=== PATIENT | male | born 1980 | race Caucasian/White ===

== ENCOUNTER 2016-08-17 07:24 | Emergency (ER) | payer MEDICAID ==
[~2016-08-17] VITALS: Ht 177.8 cm; Wt 72.6 kg
[2016-08-17 07:29] VITALS: BP 115/83; PULSE 85; RESP 16; TEMP 98.2; O2SAT 99
--- NOTE | 2016-08-17 08:00 | NUR ---
ambulated to bed 3
--- NOTE | 2016-08-17 08:00 | NUR ---
Patient presents to the emergency department with a small bump underneath buttom eyelid x 6 months that has not gone away. denies redness, pain, itching, or drainage, just states discomfort becuase he feels like "something is there". patient states it was drained 6 months ago and it has not gotten better since. Patient states he has not gone to see his primary or eye
--- NOTE | 2016-08-17 08:05 | NUR ---
CATA Grace at bedside examining patient.
--- NOTE | 2016-08-17 08:30 | NUR ---
Patient given written and verbal discharge instructions and verbalizes understanding. ER MD discussed with patient the results and treatment provided. Given copies of tests performed in ER. Patient in stable condition. ID arm band removed. Rx of lacri-lube given. Patient educated on pain management and to follow up with PMD. Pain Scale 0/10. Opportunity for questions provided and answered.
[2016-08-17 08:31] VITALS: BP 135/68; PULSE 85; RESP 16; TEMP 98.2; O2SAT 99
== END 2016-08-17 08:31 | disposition home or self-care (01) ==
LOC: SED 07:24
DX: H00.015 Hordeolum externum left lower eyelid (principal)
CPT/HCPCS: 99283

== ENCOUNTER 2018-03-17 05:39 | Emergency (ER) | payer MEDICAID ==
[~2018-03-17] VITALS: Ht 175.3 cm; Wt 72.6 kg
[2018-03-17 05:48] VITALS: BP_SYST 113
[2018-03-17 06:16] VITALS: BP_SYST 116
== END 2018-03-17 06:16 | disposition home or self-care (01) ==
LOC: SED 05:39
DX: H60.92 Unspecified otitis externa, left ear (principal)
CPT/HCPCS: 99283